=== PATIENT | male | born 2000 | race Caucasian/White ===

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

== ENCOUNTER 2019-07-12 23:04 | Emergency (ER) | payer MEDICAID ==
[2019-07-12 23:18] VITALS: BP 137/79
== END 2019-07-13 00:41 | disposition left against medical advice (07) ==
LOC: ER 23:04
DX: Z53.21 Procedure and treatment not carried out due to patient leaving prior to being seen by health care provider (principal); K59.00 Constipation, unspecified